=== PATIENT | male | born 1975 ===

== ENCOUNTER 2016-07-08 19:03 | Emergency (ER) | payer BC ==
[2016-07-08 19:21] VITALS: BP 145/84
[2016-07-08] MEDS ORDERED: Fluorescein Sodium TOPICAL* 1 MG TEST OPHTHALMIC ONE (19:25)
[2016-07-08] MEDS ORDERED: Tetracaine 0.5% OPTH.SOL 4 ML* 1 DROP BTL RIGHT EYE ONE (19:25)
[2016-07-08] MEDS ORDERED: BSS OPTH.SOL* BTL OPHTHALMIC ONE (19:26)
--- NOTE | 2016-07-08 20:23 | UC ---
Eye Complaint HPI - HPI Summary HPI Summary: WEARS CONTACTS YESTERDAY MAY HAVE HAD DUST IN RIGHT EYE. SINCE YESTERDAY HAS HAD REDNESS TEARFUL DISCHARGE AND DISCOMFORT IN RIGHT EYE. - History of Current Complaint Chief Complaint: UCEye Stated Complaint: RIGHT EYE Time Seen by Provider: 07/08/16 19:24 Hx Obtained From: Patient Onset/Duration: Sudden Onset, Lasting Days, Still Present Timing: Days Severity Initially: Mild Severity Currently: Mild Pain Intensity: 4 Pain Scale Used: 0-10 Numeric Location of Injury: Conjunctiva Character: Dull Aggravating Factor(s): Light, Contact Lens Alleviating Factor(s): Nothing Associated Signs And Symptoms: Positive: Photophobia - MILD, Drainage (Clear). Negative: Drainage (Purulent), Vision Impairment Bilateral, Vision Impairment Right, Vision Impairment Left, Fever - Risk Factors Penetrating Injury Risk Factor: Negative Globe Rupture Risk Factors: Negative Acute Glaucoma Risk Factors: Negative Optic Artery Occlusion Risk Factors: Negative - Allergies/Home Medications Allergies/Adverse Reactions: Allergies Allergy/AdvReac Type Severity Reaction Status Date / Time No Known Allergies Allergy Verified 07/08/16 19:14 PMH/Surg Hx/FS Hx/Imm Hx Previously Healthy: Yes Cardiovascular History Of: Denies: Pacemaker/ICD - Surgical History Surgical History: None - Family History Known Family History: Positive: Diabetes - Social History Occupation: Employed Full-time Lives: With Family Alcohol Use: Rare Substance Use Type: None Smoking Status (MU): Never Smoked Tobacco - Immunization History Most Recent Influenza Vaccination: NONE Most Recent Tetanus Shot: UTD Most Recent Pneumonia Vaccination: N/A Review of Systems Constitutional: Negative Skin: Negative Eyes: Drainage, Eye Redness ENT: Negative Respiratory: Negative Cardiovascular: Negative Gastrointestinal: Negative Genitourinary: Negative Motor: Negative Neurovascular: Negative Musculoskeletal: Negative Neurological: Negative Psychological: Negative All Other Systems Reviewed And Are Negative: Yes Physical Exam Triage Information Reviewed: Yes Appearance: Well-Appearing, No Pain Distress, Well-Nourished Vital Signs: Initial Vital Signs Temp 98.1 F 07/08/16 19:15 Pulse 77 07/08/16 19:15 Resp 18 07/08/16 19:15 BP 145/84 07/08/16 19:15 Pulse Ox 100 07/08/16 19:15 Eyes: Positive: Conjunctiva Inflamed, Discharge, Other: - FLUORESCEIN UPTAKE 6OCLOCK TO 9OCLOCK RIGHT EYE ENT Exam: Normal ENT: Positive: Normal ENT inspection, Hearing grossly normal, Pharynx normal, TMs normal Dental Exam: Normal Neck exam: Normal Neck: Positive: Supple, Nontender, No Lymphadenopathy Respiratory Exam: Normal Respiratory: Positive: Chest non-tender, Lungs clear, Normal breath sounds, No respiratory distress Cardiovascular Exam: Normal Cardiovascular: Positive: RRR, No Murmur Abdominal Exam: Normal Musculoskeletal Exam: Normal Neurological Exam: Normal Psychological Exam: Normal Psychological: Positive: Normal Response To Family Skin Exam: Normal Eye Complaint Course/Dx - Differential Dx/Diagnosis Differential Diagnosis/HQI/PQRI: Conjunctivitis, Corneal Abrasion Provider Diagnoses: RIGHT CORNEAL ABRASION, CONJUNCTIVITIS Discharge - Discharge Plan Condition: Stable Disposition: HOME Prescriptions: Tobramycin 0.3% OPHTH.MANDI* 1 drop RIGHT EYE Q4H #1 btl Patient Education Materials: Corneal Abrasion (ED), Conjunctivitis (ED) Forms: *Work Release Referrals: Nhan Stoner MD [Primary Care Provider] - Silverio Hair MD [Medical Doctor] -
== END 2016-07-08 20:06 | disposition home or self-care (01) ==
LOC: UCCORT 19:03
DX: S05.01XA Injury of conjunctiva and corneal abrasion without foreign body, right eye, initial encounter (principal); X58.XXXA Exposure to other specified factors, initial encounter; Y93.9 Activity, unspecified; Y92.9 Unspecified place or not applicable; H10.31 Unspecified acute conjunctivitis, right eye
CPT/HCPCS: 99212; A9270-GY; G0463

== ENCOUNTER 2019-02-15 10:12 | Emergency (ER) | payer BC ==
--- OUTSIDE RECORDS SUMMARY | 2019-02-15 10:27 | XMS REPORT | Continuity of Care Document ---
:1975 External Reference #:[id number] Author Name Nhan Stnoer M.D. Address [address] [place] [address] Care Team Providers Name Role Phone [facility] - [facility]rology Care Team Information Management Development Specialist [phone] Problems Active Problems Provider Date Panic disorder without agoraphobia Nhan Stoner M.D. Onset: 06/06/2010 Disorder of lipid metabolism Nhan Stoner M.D. Onset: 06/06/2010 Dizziness and giddiness Calvin Mccoy D.O. Onset: 12/26/2012 Social History Type Date Description Comments Sex Unknown Tobacco Use Reviewed: 12/09/13 Denies Cigarette Use Smoking Status Reviewed: 11/15/17 Denies Cigarette Use Smokeless Tobacco 07/01/2018 Former Smokeless Tobacco User ETOH Use Drinks Alcohol Occasionally Recreational Drug Use Denies Drug Use Tobacco Use Start: Unknown Non Smoker Tobacco Use Start: Unknown Chews tobacco Allergies, Adverse Reactions, Alerts Description No Known Drug Allergies Medications Active Medications SIG Qnty Indications Ordering Date Provider Olmesartan Medoxomil 1 tab by mouth 90tabs I10 Nhan Stoner 01/16/2019 every morning for M.D. 20mg Tablets high blood pressure Paroxetine HCL Take 1 Tablet By 90tabs F41.0 Nhan Stoner 01/16/2019 20mg Mouth Every M.D. Tablets Evening; may start with 1/2 tab/dose until you are tolerating it well Famotidine take one tablet by 90tabs K21.9 Nhan Stoner 01/16/2019 40mg mouth every evening M.D. Tablets (at least 10 min before supper) for acid reflux R10.13 Tadalafil 1/2-1 tab by mouth 30tabs F52.21 Nhan Stoner, 10/11/2018 20mg Tablets once a day as needed M.D. for erectile dysfunction Ketoconazole 2 tablets as one dose 6tabs B36.0 Nhan Stoner, 06/30/2018 200mg for treatment of M.D. Tablets tinea versicolor; repeat as needed, no more than once a month Nystatin apply to affected 60gm B37.2 Nhan Stoner, 10/04/2017 [id number] area(s) in groin M.D. Cream three times a day until clear; resume as needed History Medications Tadalafil take 1 tablet by 90tabs F52.21 Nhan Stoner, 10/10/2018 - 10mg mouth every day; M.D. 10/11/2018 Tablets for erectile dysfuction Immunizations CPT Code Status Date Vaccine Lot # [id number] Given 01/16/2019 Influenza Virus Vaccine, Quadrivalent, Split, Preservative Free [id number] Given 12/17/2017 Influenza Virus Vaccine, Quadrivalent, Split, Preservative Free 80511 Given 01/09/2017 Td Immunization [id number] 12432 Given 01/09/2017 Influenza Virus Vaccine, Quadrivalent, Split, [id number] Preservative Free 89723 Given 03/02/2012 Flu, Split Virus 3Yrs [id number] 98383 Given 01/17/2011 Flu, Split Virus 3Yrs [id number] 54348 Given 12/06/2009 Flu, Split Virus 3Yrs [id number] 88467 Given 06/23/2006 Adacel or Boostrix, TDaP [id number] Vital Signs Date Vital Result Comment 01/16/2019 3:33pm BP Systolic 130 mmHg Right arm sitting, RN; 147/93 w/ his cuff BP Diastolic 86 mmHg Right arm sitting, RN; 147/93 w/ his cuff BP Systolic Recheck 152 mmHg R arm his cuff; 142/100 our cuff BP Diastolic Recheck 95 mmHg R arm his cuff; 142/100 our cuff Height 69.75 inches 5'9.75" Weight 217.00 lb BMI (Body Mass Index) 31.4 kg/m2 10/10/2018 10:13am BP Systolic 134 mmHg BP Diastolic 94 mmHg BP Systolic Recheck 136 mmHg R arm sitting BP Diastolic Recheck 98 mmHg R arm sitting Heart Rate 72 /min reg Respiratory Rate 16 /min not laboured Weight 215.00 lb 212 at home Results Description No Information Available Procedures Description No Information Available Medical Devices Description No Information Available Encounters Type Date Location Provider Dx Diagnosis Office Visit 01/16/2019 Main Office Nhan Stoner I10 Essential ( primary) 3:30p M.D. hypertension F41.0 Panic disorder [episodic paroxysmal anxiety] R10.13 Epigastric pain Z23 Encounter for immunization Z68.31 Body mass index (BMI) 31.0-31.9, adult Office Visit 10/10/2018 9:45a Main Office Nhan Stoner Z00.01 Encounter for Carlie general adult medical exam w abnormal findings R03.0 Elevated blood-pressure reading, w/o diagnosis of htn F52.21 Male erectile disorder R10.13 Epigastric pain Assessments Date Code Description Provider 01/16/2019 I10 Essential (primary) hypertension Nhan Stoner M.D. 01/16/2019 F41.0 Panic disorder [episodic paroxysmal anxiety] Nhan Stoner M.D. 01/16/2019 R10.13 Epigastric pain Nhan Stoner M.D. 01/16/2019 Z23 Encounter for immunization Nhan Stoner M.D. 01/16/2019 Z68.31 Body mass index (BMI) 31.0-31.9, adult Nhan Stoner M.D. 10/10/2018 Z00.01 Encounter for general adult medical Nhan Stoner M.D. examination with abnormal findings 10/10/2018 R03.0 Elevated blood-pressure reading, without Nhan Stoner M.D. diagnosis of hypert 10/10/2018 F52.21 Male erectile disorder Nhan Stoner M.D. 10/10/2018 R10.13 Epigastric pain Nhan Stoner M.D. Plan of Treatment Future Appointment(s):03/20/2019 8:55 am - Nhan Stoner M.D. at Main [id number]/16/2019 - Nhan Stoner M.D.I10 Essential (primary) hypertensionNew Medication:Olmesartan Medoxomil 20 mg - 1 tab by mouth every morning for high blood pressureComments:START MEDS. COUNSELED RE S/Es, RISKS AND BENEFITS, AND NEED FOR BTs FOR MONITORING.Follow up:Start the medication only after you get the bloodwork done (which you will get done this Wednesday) then get a followup blood test 2-3 weeks after starting the medication. RTO 1-2 cajeurG83.0 Panic disorder [episodic paroxysmal anxiety]New Medication:Paroxetine HCL 20 mg - Take 1 Tablet By Mouth Every Evening; may start with 1/2 tab/dose until you are tolerating it wellR10.13 Epigastric painNew Medication:Famotidine 40 mg - take one tablet by mouth every evening (at least 10 min before supper) for acid refluxComments:Responded well to omeprazole. Will try an H2RB to see if it works adequately. If not will go back onPPI.Z23 Encounter for immunizationComments:Encouraged flu vaccine wc was accepted. VIS provided.Z68.31 Body mass index (BMI) 31.0-31.9, adult Functional Status Description No Information Available Mental Status Description No Information Available Referrals Description No Information Available
[2019-02-15 10:35] VITALS: BP 118/64
--- NOTE | 2019-02-15 10:40 | UC ---
Throat Pain/Nasal Sebastian HPI - HPI Summary HPI Summary: c/o sore throat since Wednesday. Son diagnosed with strep 02/09. [ End ] - History of Current Complaint Chief Complaint: UCRespiratory Stated Complaint: THROAT Time Seen by Provider: 02/15/19 10:29 Hx Obtained From: Patient Onset/Duration: Sudden Onset, Lasting Days Severity: Moderate Pain Intensity: 4 Associated Signs & Symptoms: Positive: Dysphagia - Allergies/Home Medications Allergies/Adverse Reactions: Allergies Allergy/AdvReac Type Severity Reaction Status Date / Time No Known Allergies Allergy Verified 02/15/19 10:29 Home Medications: Home Medications Olmesartan/Hydrochlorothiazide [Olmesartan Medoxomil/Hydr 20-12.5 mg] 1 tab PO DAILY 02/15/19 [History Confirmed 02/15/19] PARoxetine HCL TAB* [Paxil TAB*] 20 mg PO DAILY 02/15/19 [History Confirmed 03/06] PMH/Surg Hx/FS Hx/Imm Hx Previously Healthy: Yes - Surgical History Surgical History: None - Family History Known Family History: Positive: Diabetes - Social History Alcohol Use: Rare Substance Use Type: None Smoking Status (MU): Former Smoker When Did the Patient Quit Smoking/Using Tobacco: 20 years ago - Immunization History Most Recent Influenza Vaccination: NONE Most Recent Tetanus Shot: UTD Most Recent Pneumonia Vaccination: N/A Review of Systems All Other Systems Reviewed And Are Negative: Yes ENT: Positive: Sore Throat Is Patient Immunocompromised?: No Physical Exam Triage Information Reviewed: Yes Appearance: Well-Appearing, Well-Nourished, Pain Distress Vital Signs: Initial Vital Signs Temp 99 F 02/15/19 10:31 Pulse 83 02/15/19 10:31 Resp 14 02/15/19 10:31 BP 118/64 02/15/19 10:31 Pulse Ox 100 02/15/19 10:31 Vital Signs Reviewed: Yes Eye Exam: Normal ENT: Positive: Pharyngeal erythema, TMs normal, Tonsillar swelling, Tonsillar exudate Dental Exam: Normal Respiratory Exam: Normal Cardiovascular Exam: Normal Abdominal Exam: Normal Musculoskeletal Exam: Normal Neurological Exam: Normal Psychological Exam: Normal Skin Exam: Normal Throat Pain/Nasal Course/Dx - Course Course Of Treatment: Hx obtained, exam performed, treated for strep based on clinical presentation and exposure - Differential Dx/Diagnosis Differential Diagnosis/HQI/PQRI: Pharyngitis Provider Diagnosis: Pharyngitis Discharge ED - Sign-Out/Discharge Documenting (check all that apply): Patient Departure All imaging exams completed and their final reports reviewed: No Studies - Discharge Plan Condition: Stable Disposition: HOME Patient Education Materials: Pharyngitis (ED) Referrals: Nhan Stoner MD [Primary Care Provider] - - Billing Disposition and Condition Condition: STABLE Disposition: Home
== END 2019-02-15 10:50 | disposition home or self-care (01) ==
LOC: UCCORT 10:12
DX: J02.9 Acute pharyngitis, unspecified (principal); Z87.891 Personal history of nicotine dependence
CPT/HCPCS: 99212; G0463